=== PATIENT | female | born 1980 | race Two or more races ===

== ENCOUNTER 2022-11-30 10:00 | Outpatient (CLI) | payer OTHER | END 2022-11-30 10:01 | disposition home or self-care (01) | LOC: LAB 10:00 | PROVIDERS: ATTEND Internal Medicine Cardiovascular Disease | DX: I10 Essential (primary) hypertension (principal); K59.89 Other specified functional intestinal disorders; E07.9 Disorder of thyroid, unspecified ==

== ENCOUNTER 2022-11-30 11:10 | Outpatient (CLI) | payer OTHER | END 2022-11-30 11:27 | disposition home or self-care (01) | LOC: MAMO-SONO 11:10 | PROVIDERS: ATTEND Internal Medicine Cardiovascular Disease | DX: N63.0 Unspecified lump in unspecified breast (principal) ==

== ENCOUNTER 2023-01-17 10:57 | Outpatient (CLI) | payer OTHER | END 2023-01-17 11:04 | disposition home or self-care (01) | LOC: RAD 10:57 | PROVIDERS: ATTEND Chiropractor | DX: M54.2 Cervicalgia (principal); M54.50 Low back pain, unspecified; M54.6 Pain in thoracic spine ==

== ENCOUNTER 2023-01-17 11:45 | Outpatient (CLI) | payer OTHER | END 2023-01-17 12:04 | disposition home or self-care (01) | LOC: LAB 11:45 | PROVIDERS: ATTEND Internal Medicine Cardiovascular Disease | DX: Z20.5 Contact with and (suspected) exposure to viral hepatitis (principal) ==

== ENCOUNTER 2023-07-20 10:24 | Outpatient (CLI) | payer OTHER ==
[2023-07-20 11:59] LABS: PH,URINE 5.5 (5.0-8.0); URINE APPEARANCE Clear; URINE BILIRRUBIN Negative (NEGATIVE); URINE BLOOD Negative; URINE COLOR Yellow; URINE GLUCOSE Negative (NEGATIVE); URINE LEUKOCYTE Negative; URINE NITRATE Negative; URINE PROTEIN Negative (NEGATIVE); URINE UROBILINOGEN 0.2 E.U./dl
[2023-07-20 12:00] LABS: URINE BACTERIA 17.6 uL (0.0-1933); URINE EPITHELIAL CELLS 3.6 uL (0.0-38.8); URINE RBC 2.1 uL (0.0-20.8); URINE WBC 1.9 uL (0.0-23.2)
[2023-07-20 12:02] LABS: HEMATOCRIT 37.3 % (36.0-45.00); MEAN CELL VOLUME 82.2 fL (80.00-100.00); MEAN CORPUSCULAR HEMOGLOBIN 26.4 pg (27.00-32.0); MEAN CORPUSCULAR HGB CONC 32.1 g/dl (32.0-36.0); PLATELET COUNT 410 K/uL (150-450); RED BLOOD COUNT 4.53 M/uL (4.00-6.00); RED CELL DISTRIBUTION WIDTH 14.4 % (11.5-14.5)
[2023-07-20 12:42] LABS: ALBUMIN 3.6 gm/dL (3.4-5.0); BILIRUBIN TOTAL 0.21 mg/dL (0.3-1.2); CALCIUM 8.9 mg/dL (8.5-10.1); CHOL HDL RATIO 3.9 (0-5.0); CREATININE SERUM 0.59 mg/dL (0.55-1.02); GFR 111.78; GLOBULINA 4.5 G/DL (2.4-3.5); POTASSIUM 3.77 mEq/L (3.5-5.1); TOTAL PROTEIN 8.1 gm/dL (6.4-8.2); TSH 2.58 uIU/mL (0.358-3.74)
== END 2023-07-20 10:30 | disposition home or self-care (01) ==
LOC: LAB 10:24
PROVIDERS: ATTEND General Practice
DX: P59.9 Neonatal jaundice, unspecified (principal)

== ENCOUNTER 2023-07-20 11:36 | Outpatient (CLI) | payer OTHER | END 2023-07-20 11:42 | disposition home or self-care (01) | LOC: SONOGRAMA 11:36 | PROVIDERS: ATTEND General Practice | DX: R10.2 Pelvic and perineal pain (principal); N92.1 Excessive and frequent menstruation with irregular cycle ==